=== PATIENT | male | born 1980 | race Caucasian/White ===

== ENCOUNTER 2025-04-25 23:08 | Emergency (ER) | payer SELFPAY ==
[~2025-04-25] VITALS: Ht 167.6 cm; Wt 83.0 kg
[~2025-04-25 23:08] MED LIST: ASPI-1160 PO; AZIT250T12 PO; METO25TA6 PO; TAM75 MT
[2025-04-25 23:12] VITALS: O2SAT 100
[2025-04-25] MEDS: ONDANSETRON HCL 4MG/2ML INJ IV ONE (23:49)
[2025-04-25] MEDS: PANTOPRAZOLE SODIUM 40 MG/VIAL IV ONE (23:50)
[2025-04-25] MEDS: ASPIRIN 325MG EC TABLET PO ONE (23:50)
[2025-04-26 00:12] LABS: BASOPHILS % 0.3 % (0.0-2.0); EOSINOPHILS % 1.6 % (0.0-5.0); HEMATOCRIT. 40.3 % (42.0-52.0); HEMOGLOBIN. 14.0 g/dL (14.0-18.0); LYMPHOCYTES % 34.7 % (20.0-50.0); MEAN PLATELET VOLUME 10.0 fl (7.4-10.4); MONOCYTES % 11.4 % (2.0-8.0); NEUTROPHILS % 52.0 % (40.0-76.0); PLATELET 184 x1000/uL (130-400); RED BLOOD CELL COUNT 4.40 mill/uL (4.7-6.1); RED CELL DISTRIBUTION WIDTH 12.0 % (11.6-14.6)
[2025-04-26 00:25] LABS: CREATININE 1.1 mg/dL (0.6-1.3)
[2025-04-26 00:26] LABS: TROPONIN I HIGH SENSITIVITY 19 ng/L (3.0-53); UREA NITROGEN BLOOD 10 mg/dL (9-23)
[2025-04-26 00:27] LABS: ASPARTATE AMINOTRANSFERASE 24 IU/L (<34)
[2025-04-26 00:28] LABS: BILIRUBIN DIRECT 0.2 mg/dL (<=3.0); BILIRUBIN TOTAL 0.5 mg/dL (0.1-1.0); PROTEIN TOTAL 6.9 g/dL (6.0-8.3)
[2025-04-26 01:14] LABS: INR 1.1
[2025-04-26] MEDS: MAGNESIUM/ALUMINUM HYDROXIDE/SIMETHICONE 30ML UDC PO ONE (01:15)
[2025-04-26] MEDS: MORPHINE SULFATE 4 MG/ML INJ (FOR IV/IM USE) IV ONE (01:15)
[2025-04-26 01:18] LABS: TROPONIN I HIGH SENSITIVITY 20 ng/L (3.0-53)
[2025-04-26 01:32] VITALS: TEMP 36.5
[2025-04-26] MEDS ORDERED: FAMO-135 MT (02:06)
[2025-04-26] MEDS ORDERED: MAG-55 MT (02:06)
[2025-04-26 02:20] VITALS: BP 111/65; PULSE 78; RESP 18; O2SAT 99
== END 2025-04-26 02:23 | disposition home or self-care (01) ==
LOC: ER 23:08 → CMPBEDREQ 04-27 07:42
DX: R07.89 Other chest pain (principal); K29.20 Alcoholic gastritis without bleeding; F10.129 Alcohol abuse with intoxication, unspecified; E11.65 Type 2 diabetes mellitus with hyperglycemia; Z79.82 Long term (current) use of aspirin; Z79.899 Other long term (current) drug therapy; Y90.6 Blood alcohol level of 120-199 mg/100 ml
CPT/HCPCS: 80076; 80048; 80320; 83880; 83690; 85025; 84484 ×2; 36415 ×2; 71045; 93005; 96374; 96375; 99285; 85610; 85730; J2405; J2470; J2270; G0480